=== PATIENT | female | born 1970 | race Caucasian/White ===

== ENCOUNTER 2022-05-21 12:51 | Inpatient (IN) ==
[2022-05-21] MEDS ORDERED: Ondansetron 4 MG/2 ML VIAL IVP ONE (13:01)
[2022-05-21] MEDS ORDERED: *HR* FentaNYL (PF) 100 MCG/2 ML VIAL IVP ONE (13:01)
[2022-05-21] MEDS ORDERED: *HR* HYDROmorphone (PF) 1 MG/ML SYRINGE IVP ONE ×2 (13:20→14:59)
[2022-05-21 13:33] LABS: Basophils % 0.3 %; Eosinophils # 0.3 K/mcL (0.0-0.6); Eosinophils % 2.7 %; Hematocrit 39.1 % (35.3-44.9); Hemoglobin 12.5 g/dL (11.5-15.4); Immature Granulocytes % 0.5 % (0-4); Lymphocytes # 3.4 K/mcL (0.6-4.6); Mean Corpuscular Hemoglobin 30.3 pg (28.0-33.3); Mean Corpuscular Volume 94.9 fL (83.0-100.0); Mean Platelet Volume 9.6 fL (9.4-12.4); Monocytes % 9.6 %; Neutrophils # 5.6 K/mcL (1.6-8.9); Platelet Count 386 K/mcL (140-400); Red Blood Count 4.12 M/mcL (3.82-4.97); Red Cell Distribution Width 13.9 % (11.5-14.5); Segmented Neutrophils % 53.9 %; White Blood Count 10.4 K/mcL (4.3-11.1)
[2022-05-21 13:57] LABS: BUN/Creatinine Ratio 18 (6-26); Blood Urea Nitrogen 12 mg/dL (6-20); Calcium 9.6 mg/dL (8.6-10.3); Carbon Dioxide 27 mEq/L (23-29); Chloride 104 mEq/L (98-107); Glucose 97 mg/dL (70-105); Osmolality,Calculated 282 (280-300); Sodium 136 mEq/L (136-145)
[2022-05-21] MEDS ORDERED: Acetaminophen 325 MG TABLET PO PRN (16:26)
[2022-05-21] MEDS ORDERED: Naloxone 0.4 MG/ML INJ IVP PRN (16:26)
[2022-05-21] MEDS ORDERED: Ondansetron ODT 4 MG TAB.RAPDIS SL PRN (16:26)
[2022-05-21] MEDS ORDERED: MOM Conc 10 ML UD.LIQ PO PRN (16:26)
[2022-05-21] MEDS ORDERED: Melatonin 3 MG TABLET PO PRN (16:26)
[2022-05-21] MEDS: Acetaminophen IV 1,000 MG/100 ML BAG IVPB SCH ×2 (18:33→23:35)
[2022-05-21] MEDS: *HR* HYDROcodone/Acet 5/325 mg TABLET PO PRN (19:33)
[2022-05-21] MEDS: *HR* HYDROmorphone (PF) 1 MG/ML SYRINGE IVP PRN (20:41)
[2022-05-21] MEDS: Ringers Solution, Lactated 500 ML IVC SCH (20:41)
[2022-05-21] MEDS: *HR* OxyCODONE Immed Rel 5 MG TABLET PO PRN (21:37)
[2022-05-22] MEDS: *HR* HYDROcodone/Acet 5/325 mg TABLET PO PRN ×2 (01:31→09:29)
[2022-05-22] MEDS: *HR* HYDROmorphone (PF) 1 MG/ML SYRINGE IVP PRN ×2 (02:41→08:45)
[2022-05-22 03:17] LABS: Hematocrit 32.3 % (35.3-44.9); Mean Corpuscular HGB Conc 31.9 g/dL (31.6-35.5); Mean Corpuscular Hemoglobin 30.2 pg (28.0-33.3); Mean Corpuscular Volume 94.7 fL (83.0-100.0); Mean Platelet Volume 9.7 fL (9.4-12.4); Platelet Count 315 K/mcL (140-400); Red Blood Count 3.41 M/mcL (3.82-4.97); Red Cell Distribution Width 13.7 % (11.5-14.5); White Blood Count 10.3 K/mcL (4.3-11.1)
[2022-05-22 03:28] LABS: BUN/Creatinine Ratio 13 (6-26); Blood Urea Nitrogen 8 mg/dL (6-20); Calcium 8.9 mg/dL (8.6-10.3); Carbon Dioxide 26 mEq/L (23-29); Chloride 102 mEq/L (98-107); Glucose 107 mg/dL (70-105); Osmolality,Calculated 275 (280-300); Potassium 4.1 mEq/L (3.5-5.1); Sodium 133 mEq/L (136-145)
[2022-05-22 03:41] LABS: Hemoglobin 10.3 g/dL (11.5-15.4)
[2022-05-22] MEDS: Acetaminophen IV 1,000 MG/100 ML BAG IVPB SCH ×2 (05:32→11:32)
[2022-05-22] MEDS: *HR* OxyCODONE Immed Rel 5 MG TABLET PO PRN ×3 (06:00→23:48)
[2022-05-22] MEDS: Ringers Solution, Lactated 500 ML IVC SCH ×2 (06:42→09:23)
[2022-05-22] MEDS ORDERED: atenoloL 50 MG TABLET PO SCH (09:00)
[2022-05-22] MEDS ORDERED: *HR* HYDROmorphone (PF) 1 MG/ML SYRINGE IVP PRN (10:59)
[2022-05-22] MEDS ORDERED: Famotidine 20 MG TABLET PO PRN ×2 (11:06→19:40)
[2022-05-22] MEDS ORDERED: tiZANidine 4 MG TABLET PO PRN (11:13)
[2022-05-22] MEDS ORDERED: Loratadine 10 MG TABLET PO SCH (11:15)
[2022-05-22] MEDS: Sucralfate 1 GM TABLET PO SCH ×3 (11:27→20:14)
[2022-05-22] MEDS ORDERED: Gabapentin 400 MG CAPSULE PO SCH (12:00)
[2022-05-22] MEDS ORDERED: Clindamycin 900 MG/50 ML 900 MG/50 ML IV.SOLN IVPB ONE (14:22)
[2022-05-22] MEDS ORDERED: Ringers Solution, Lactated 1,000 ML IVC SCH (14:30)
[2022-05-22] MEDS ORDERED: *HR* Propofol 200 MG/20 ML VIAL IVP ONE (15:08)
[2022-05-22] MEDS ORDERED: *HR* FentaNYL (PF) 100 MCG/2 ML VIAL ONE (15:08)
[2022-05-22] MEDS ORDERED: Ropivacaine/PF 0.5% 30 ML VIAL ONE (15:09)
[2022-05-22] MEDS ORDERED: *HR* Midazolam HCl 2 MG/2 ML VIAL ONE (16:11)
[2022-05-22] MEDS ORDERED: *HR* Succinylcholine 200 MG/10 ML VIAL IVP ONE (17:04)
[2022-05-22] MEDS ORDERED: *HR* Rocuronium Bromide 50 MG/5 ML VIAL ONE (17:04)
[2022-05-22] MEDS ORDERED: Ondansetron 4 MG/2 ML VIAL ONE (17:04)
[2022-05-22] MEDS ORDERED: Tranexamic Acid 1,000 MG/10 ML VIAL ONE ×2 (17:04→17:48)
[2022-05-22] MEDS ORDERED: Lidocaine -MPF 2% 5 ML VIAL ONE (17:04)
[2022-05-22] MEDS ORDERED: Lidocaine HCL 4 ML Topical Solution (Laryng-O-Jet Kit Sterile Pak) TP ONE (17:04)
[2022-05-22] MEDS ORDERED: Ketamine HCL *QUVA* 50mg (1mL) SYRINGE ONE (17:25)
[2022-05-22] MEDS ORDERED: EPHEDrine sulfate 50 MG/10 ML VIAL IVP ONE (17:41)
[2022-05-22] MEDS ORDERED: Sugammadex Sodium 200 MG/2 ML VIAL IV ONE (17:52)
[2022-05-22] MEDS ORDERED: Albuterol 2.5 MG/3 ML NEBULIZER IH PRN (18:33)
[2022-05-22] MEDS ORDERED: *HR* FentaNYL (PF) 100 MCG/2 ML VIAL IVP PRN (18:33)
[2022-05-22] MEDS: *HR* HYDROmorphone PF 0.5 MG/0.5 ML SYRINGE IVP PRN ×4 (18:40→19:18)
[2022-05-22] MEDS ORDERED: MOM Conc 10 ML UD.LIQ PO PRN (19:40)
[2022-05-22] MEDS ORDERED: Melatonin 3 MG TABLET PO PRN (19:40)
[2022-05-22] MEDS ORDERED: Ondansetron 4 MG/2 ML VIAL IVP PRN (19:40)
[2022-05-22] MEDS: Gabapentin 400 MG CAPSULE PO SCH (20:14)
[2022-05-22] MEDS: Clindamycin 900 MG/50 ML 900 MG/50 ML IV.SOLN IVPB SCH (23:48)
[2022-05-23] MEDS: *HR* OxyCODONE Immed Rel 5 MG TABLET PO PRN ×6 (02:32→21:44)
[2022-05-23] MEDS ORDERED: *HR* HYDROmorphone (PF) 1 MG/ML SYRINGE IVP ONE (05:43)
[2022-05-23 06:57] LABS: Basophils % 0.1 %; Hematocrit 28.7 % (35.3-44.9); Hemoglobin 9.1 g/dL (11.5-15.4); Immature Granulocytes % 0.3 % (0-4); Lymphocytes # 1.2 K/mcL (0.6-4.6); Lymphocytes % 9.7 %; Mean Corpuscular HGB Conc 31.7 g/dL (31.6-35.5); Mean Corpuscular Hemoglobin 29.7 pg (28.0-33.3); Mean Corpuscular Volume 93.8 fL (83.0-100.0); Mean Platelet Volume 9.6 fL (9.4-12.4); Monocytes # 1.1 K/mcL (0.0-1.3); Monocytes % 9.3 %; Neutrophils # 9.8 K/mcL (1.6-8.9); Platelet Count 257 K/mcL (140-400); Red Blood Count 3.06 M/mcL (3.82-4.97); Red Cell Distribution Width 13.8 % (11.5-14.5); Segmented Neutrophils % 80.6 %; White Blood Count 12.2 K/mcL (4.3-11.1)
[2022-05-23 07:21] LABS: BUN/Creatinine Ratio 14 (6-26); Blood Urea Nitrogen 7 mg/dL (6-20); Calcium 8.7 mg/dL (8.6-10.3); Carbon Dioxide 25 mEq/L (23-29); Chloride 101 mEq/L (98-107); Glucose 134 mg/dL (70-105); Osmolality,Calculated 276 (280-300); Potassium 3.9 mEq/L (3.5-5.1); Sodium 133 mEq/L (136-145)
[2022-05-23] MEDS: Ringers Solution, Lactated 500 ML IVC SCH (07:35)
[2022-05-23] MEDS: Acetaminophen IV 1,000 MG/100 ML BAG IVPB SCH (07:35)
[2022-05-23] MEDS: Loratadine 10 MG TABLET PO SCH (08:40)
[2022-05-23] MEDS: Gabapentin 400 MG CAPSULE PO SCH ×3 (08:40→20:34)
[2022-05-23] MEDS: Sucralfate 1 GM TABLET PO SCH ×2 (08:41→20:34)
[2022-05-23] MEDS: Apixaban 2.5 MG TABLET PO SCH ×2 (08:41→20:34)
[2022-05-23] MEDS: atenoloL 50 MG TABLET PO SCH (08:43)
[2022-05-23] MEDS: Clindamycin 900 MG/50 ML 900 MG/50 ML IV.SOLN IVPB SCH (08:46)
[2022-05-23] MEDS: *HR* HYDROmorphone (PF) 1 MG/ML SYRINGE IVP PRN ×3 (10:42→23:21)
[2022-05-23] MEDS: tiZANidine 4 MG TABLET PO SCH ×3 (10:42→20:34)
[2022-05-24] MEDS: *HR* OxyCODONE Immed Rel 5 MG TABLET PO PRN ×4 (03:58→21:17)
[2022-05-24] MEDS: *HR* HYDROmorphone (PF) 1 MG/ML SYRINGE IVP PRN ×2 (06:08→17:24)
[2022-05-24 08:16] LABS: BUN/Creatinine Ratio 25 (6-26); Blood Urea Nitrogen 15 mg/dL (6-20); Calcium 8.7 mg/dL (8.6-10.3); Carbon Dioxide 24 mEq/L (23-29); Chloride 103 mEq/L (98-107); Glucose 98 mg/dL (70-105); Osmolality,Calculated 279 (280-300); Potassium 4.5 mEq/L (3.5-5.1); Sodium 134 mEq/L (136-145)
[2022-05-24] MEDS: tiZANidine 4 MG TABLET PO SCH ×3 (08:43→21:17)
[2022-05-24] MEDS: Sucralfate 1 GM TABLET PO SCH ×2 (08:43→21:18)
[2022-05-24] MEDS: atenoloL 50 MG TABLET PO SCH (08:43)
[2022-05-24] MEDS: Gabapentin 400 MG CAPSULE PO SCH ×3 (08:43→21:18)
[2022-05-24] MEDS: Loratadine 10 MG TABLET PO SCH (08:43)
[2022-05-24] MEDS: Apixaban 2.5 MG TABLET PO SCH ×2 (08:44→21:18)
[2022-05-24 10:04] LABS: Hematocrit 28.1 % (35.3-44.9); Mean Corpuscular Hemoglobin 30.2 pg (28.0-33.3); Mean Corpuscular Volume 94.3 fL (83.0-100.0); Mean Platelet Volume 9.5 fL (9.4-12.4); Platelet Count 245 K/mcL (140-400); Red Blood Count 2.98 M/mcL (3.82-4.97); White Blood Count 11.3 K/mcL (4.3-11.1)
[2022-05-24] MEDS ORDERED: hydrOXYzine pamoate 25 MG CAPSULE PO PRN (11:32)
[2022-05-24] MEDS ORDERED: Nystatin POWDER 30 GM BOTTLE TP PRN (18:20)
[2022-05-24] MEDS ORDERED: 0.9 % Sodium Chloride 500 ML IVC ONE (23:29)
[2022-05-25] MEDS: *HR* OxyCODONE Immed Rel 5 MG TABLET PO PRN ×5 (02:43→20:50)
[2022-05-25] MEDS: *HR* HYDROmorphone (PF) 1 MG/ML SYRINGE IVP PRN (05:31)
[2022-05-25 05:45] LABS: Hematocrit 24.5 % (35.3-44.9); Hemoglobin 7.9 g/dL (11.5-15.4); Mean Corpuscular HGB Conc 32.2 g/dL (31.6-35.5); Mean Corpuscular Hemoglobin 30.4 pg (28.0-33.3); Mean Corpuscular Volume 94.2 fL (83.0-100.0); Mean Platelet Volume 9.6 fL (9.4-12.4); Platelet Count 252 K/mcL (140-400); Red Cell Distribution Width 14.2 % (11.5-14.5); White Blood Count 9.4 K/mcL (4.3-11.1)
[2022-05-25 06:04] LABS: BUN/Creatinine Ratio 26 (6-26); Blood Urea Nitrogen 14 mg/dL (6-20); Calcium 8.6 mg/dL (8.6-10.3); Carbon Dioxide 26 mEq/L (23-29); Chloride 103 mEq/L (98-107); Glucose 98 mg/dL (70-105); Osmolality,Calculated 280 (280-300); Potassium 4.1 mEq/L (3.5-5.1); Sodium 135 mEq/L (136-145)
[2022-05-25] MEDS: Apixaban 2.5 MG TABLET PO SCH ×2 (08:26→19:39)
[2022-05-25] MEDS: tiZANidine 4 MG TABLET PO SCH ×3 (08:26→19:39)
[2022-05-25] MEDS: atenoloL 50 MG TABLET PO SCH (08:26)
[2022-05-25] MEDS: Loratadine 10 MG TABLET PO SCH (08:26)
[2022-05-25] MEDS: Sucralfate 1 GM TABLET PO SCH ×2 (08:27→19:39)
[2022-05-25] MEDS: Gabapentin 400 MG CAPSULE PO SCH ×3 (08:27→19:39)
[2022-05-26] MEDS ORDERED: Ketorolac 30 MG/ML VIAL IVP PRN (03:05)
[2022-05-26 03:41] LABS: Hemoglobin 7.7 g/dL (11.5-15.4); Mean Corpuscular HGB Conc 32.1 g/dL (31.6-35.5); Mean Corpuscular Hemoglobin 30.3 pg (28.0-33.3); Mean Corpuscular Volume 94.5 fL (83.0-100.0); Mean Platelet Volume 9.7 fL (9.4-12.4); Platelet Count 262 K/mcL (140-400); Red Blood Count 2.54 M/mcL (3.82-4.97); Red Cell Distribution Width 13.9 % (11.5-14.5); White Blood Count 10.1 K/mcL (4.3-11.1)
[2022-05-26 03:59] LABS: BUN/Creatinine Ratio 31 (6-26); Blood Urea Nitrogen 18 mg/dL (6-20); Calcium 8.7 mg/dL (8.6-10.3); Carbon Dioxide 27 mEq/L (23-29); Chloride 99 mEq/L (98-107); Glucose 97 mg/dL (70-105); Osmolality,Calculated 278 (280-300); Potassium 4.1 mEq/L (3.5-5.1); Sodium 133 mEq/L (136-145)
[2022-05-26] MEDS: Sucralfate 1 GM TABLET PO SCH ×2 (08:37→20:36)
[2022-05-26] MEDS: tiZANidine 4 MG TABLET PO SCH (08:37)
[2022-05-26] MEDS: atenoloL 50 MG TABLET PO SCH (08:38)
[2022-05-26] MEDS: Loratadine 10 MG TABLET PO SCH (08:40)
[2022-05-26] MEDS: Gabapentin 400 MG CAPSULE PO SCH (08:40)
[2022-05-26] MEDS: Apixaban 2.5 MG TABLET PO SCH ×2 (08:40→20:36)
[2022-05-26] MEDS: *HR* OxyCODONE Immed Rel 5 MG TABLET PO PRN ×4 (08:41→22:41)
[2022-05-26] MEDS ORDERED: 0.9 % Sodium Chloride 500 ML IVC ONE (11:57)
[2022-05-26] MEDS ORDERED: tiZANidine 4 MG TABLET PO PRN (11:59)
[2022-05-26] MEDS: Ketorolac 30 MG/ML VIAL IVP PRN ×2 (13:23→20:35)
[2022-05-27] MEDS: *HR* OxyCODONE Immed Rel 5 MG TABLET PO PRN ×5 (03:35→23:48)
[2022-05-27 04:08] LABS: Hematocrit 23.5 % (35.3-44.9); Hemoglobin 7.6 g/dL (11.5-15.4)
[2022-05-27] MEDS: Ketorolac 30 MG/ML VIAL IVP PRN (04:57)
[2022-05-27] MEDS: Sucralfate 1 GM TABLET PO SCH ×2 (07:55→19:41)
[2022-05-27] MEDS: Apixaban 2.5 MG TABLET PO SCH ×2 (07:55→19:41)
[2022-05-27] MEDS: Loratadine 10 MG TABLET PO SCH (07:56)
[2022-05-27] MEDS ORDERED: Gabapentin 400 MG CAPSULE PO SCH (15:00)
[2022-05-27] MEDS: Gabapentin 400 MG CAPSULE PO SCH ×2 (16:58→19:41)
[2022-05-28] MEDS: *HR* OxyCODONE Immed Rel 5 MG TABLET PO PRN ×4 (05:27→20:58)
[2022-05-28] MEDS: Gabapentin 400 MG CAPSULE PO SCH ×3 (08:30→20:58)
[2022-05-28] MEDS: Sucralfate 1 GM TABLET PO SCH ×2 (08:30→20:58)
[2022-05-28] MEDS: Loratadine 10 MG TABLET PO SCH (08:30)
[2022-05-28] MEDS: Apixaban 2.5 MG TABLET PO SCH ×2 (08:30→20:58)
[2022-05-29] MEDS: *HR* OxyCODONE Immed Rel 5 MG TABLET PO PRN ×5 (00:09→13:43)
[2022-05-29 05:33] LABS: Basophils % 0.6 %; Eosinophils # 0.5 K/mcL (0.0-0.6); Eosinophils % 7.5 %; Hematocrit 24.1 % (35.3-44.9); Hemoglobin 7.5 g/dL (11.5-15.4); Immature Granulocytes % 0.6 % (0-4); Lymphocytes # 2.2 K/mcL (0.6-4.6); Lymphocytes % 30.6 %; Mean Corpuscular HGB Conc 31.1 g/dL (31.6-35.5); Mean Corpuscular Hemoglobin 30.1 pg (28.0-33.3); Mean Corpuscular Volume 96.8 fL (83.0-100.0); Mean Platelet Volume 9.2 fL (9.4-12.4); Monocytes # 0.9 K/mcL (0.0-1.3); Monocytes % 12.7 %; Neutrophils # 3.4 K/mcL (1.6-8.9); Platelet Count 398 K/mcL (140-400); Red Blood Count 2.49 M/mcL (3.82-4.97); Red Cell Distribution Width 14.4 % (11.5-14.5); White Blood Count 7.1 K/mcL (4.3-11.1)
[2022-05-29 06:03] LABS: BUN/Creatinine Ratio 23 (6-26); Blood Urea Nitrogen 15 mg/dL (6-20); Calcium 8.7 mg/dL (8.6-10.3); Carbon Dioxide 28 mEq/L (23-29); Chloride 104 mEq/L (98-107); Glucose 95 mg/dL (70-105); Magnesium 1.9 mg/dL (1.6-2.6); Osmolality,Calculated 285 (280-300); Potassium 4.4 mEq/L (3.5-5.1); Sodium 137 mEq/L (136-145)
[2022-05-29] MEDS: Apixaban 2.5 MG TABLET PO SCH (08:46)
[2022-05-29] MEDS: Sucralfate 1 GM TABLET PO SCH (08:46)
[2022-05-29] MEDS: Gabapentin 400 MG CAPSULE PO SCH ×2 (08:47→15:03)
[2022-05-29] MEDS: Loratadine 10 MG TABLET PO SCH (08:47)
[2022-05-29 11:06] VITALS: PULSE 84; TEMP 96.5; O2SAT 96
[2022-05-29 12:43] LABS: Influenza A PCR Negative (Negative); Influenza B PCR Negative (Negative); Resp. Syncytial Virus PCR Negative (Negative)
[2022-05-29 12:44] LABS: SARS-CoV-2 by PCR (In House) Negative (Negative)
[2022-05-29 13:37] VITALS: BP 150/79
== END 2022-05-29 15:30 | DRG 308 ==
LOC: 3BNU 12:51 → EMEROOARM 12:51 → SUATTDRO 16:00 → 3BNU 16:09 → 4WAOSI 05-22 18:08
PROVIDERS: ADMIT Internal Medicine; ATTEND Student in an Organized Health Care Education/Training Program